=== PATIENT | female | born 1970 | race American Indian/Alaskan Native ===

== ENCOUNTER 2016-10-16 08:02 | Inpatient (IN) | payer OTHER ==
[2016-10-16 08:48] LABS: Hematocrit 24.8 % (30.3-42.9); Hemoglobin 7.6 gm/dl (10.1-14.3); Mean Corpuscular HGB Conc 31 % (30-34); Red Cell Distribution Width 17.9 % (13.2-15.2); White Blood Count 6.4 K/mm3 (4.5-11.0)
[2016-10-16 08:49] LABS: Basophils % (Auto) 0.7 % (0.0-1.8); Eosinophils % (Auto) 7.9 % (0.0-4.3); Platelet Count 221 K/mm3 (140-440)
[2016-10-16 08:52] LABS: Mean Corpuscular Hemoglobin 21 pg (28-32); Mean Corpuscular Volume 67 fl (79-97)
[2016-10-16 09:07] LABS: Anion Gap 15 mmol/L; Blood Urea Nitrogen 4 mg/dL (7-17); Calcium 8.6 mg/dL (8.4-10.2); Carbon Dioxide 24 mmol/L (22-30); Chloride 101.3 mmol/L (98-107); Glucose 95 mg/dL (65-100); Potassium 3.7 mmol/L (3.6-5.0); Sodium 137 mmol/L (137-145)
[2016-10-16 10:04] LABS: Bilirubin,Urine NEG (Negative); Blood,Urine SM (Negative); Ketones,Urine NEG (Negative); Leukocyte Esterase,Urine NEG (Negative); Nitrite,Urine NEG (Negative); Protein,Urine <15 mg/dL mg/dL (Negative); Urobilinogen,Urine < 2.0 mg/dL (<2.0)
[2016-10-16 10:05] LABS: RBC,Urine < 1.0 /HPF (0.0-6.0); WBC,Urine < 1.0 /HPF (0.0-6.0)
[2016-10-16] MEDS ORDERED: MORPHINE IV ONE (11:19)
[2016-10-16] MEDS ORDERED: ZOFRAN IV ONE (11:19)
[2016-10-16] MEDS ORDERED: NACL 0.9% 500 ML 500 ML IV ONE ×2 (11:20→15:00)
--- NOTE | 2016-10-16 11:26 | Emergency Department Report ---
ED General Adult HPI - General Chief complaint: Chest Pain Stated complaint: HEAVY VAG BLEEDING /HEADACHE/DIZZINESS Time Seen by Provider: 10/16/16 11:08 Source: patient, old records reviewed (no previous record for review) Mode of arrival: Ambulatory Limitations: No Limitations - History of Present Illness Initial comments: 46 yo female with a past medical history of peptic ulcer disease, migraine headache, anemia, fibroids, and previous tubal ligation presents hospital with multiple complaints. Patient had been a prolonged menstrual cycle 10 days with heavy bleeding. Patient states using 3 pads per day. She's had intermittent lightheadedness, dyspnea on exertion, and generalized fatigue. Patient also had left upper sharp chest pain 2 days ago that has since resolved. No complaints of calf tenderness or edema. Patient also suffers from migraines and states for the last 5 days she has had more persistent right- sided headaches. Location and character is typical of previous migraines but this one is more prolonged. Patient takes ibuprofen with temporary relief then headache comes back. No reports of nausea, vomiting, focal weakness or numbness. Patient has a known history of iron deficiency anemia and has been noncompliant with iron tablets. She just bought some iron tablets yesterday and restarted them at that time. She has had history of blood transfusion in the past. She has history of laser surgery treatment of her previous fibroid tumors approximately 3-4 years ago. She does not currently have a OFFICE MOVER or primary care doctor. - Related Data Allergies Allergy/AdvReac Type Severity Reaction Status Date / Time No Known Allergies Allergy Unverified 10/16/16 08:09 ED Review of Systems ROS: Stated complaint: HEAVY VAG BLEEDING /HEADACHE/DIZZINESS Other details as noted in HPI Comment: All other systems reviewed and negative Other: Constitutional: No fevers chills Eyes: No eye pain visual changes ENT: No ear pain or throat pain Neck: Denies pain Respiratory: Denies cough wheezing Cardiovascular: Denies palpitations, syncope GI: Denies abdominal pain, nausea, vomiting, diarrhea : Denies dysuria Musculoskeletal: Denies back pain Skin: Denies rash, lesions, erythema Neurologic: Denies numbness Psychiatric: Denies suicidal ideation, hallucinations ED Past Medical Hx - Past Medical History Additional medical history: Ulcer, anemia, Fibroids - Surgical History Additional Surgical History: Fibroids, tubal ligation - Social History Smoking Status: Current Every Day Smoker Substance Use Type: None ED Physical Exam - General Limitations: No Limitations - Other Other exam information: General: No limitations, patient is alert in no acute distress Head exam: Atraumatic, normocephalic Eyes exam: Normal appearance ENT: Moist mucous membrane, normal oropharynx Neck exam: Normal inspection, full range of motion, no meningismus nontender Respiratory exam: Clear to auscultation bilateral, no wheezes, rales, crackles Cardiovascular: Normal rate and rhythm, normal heart sounds. Chest wall nontender Abdomen: Soft, nondistended, and nontender, with normal bowel sounds, no rebound, or guarding Extremity: Full range of motion normal inspection no deformity, no calf tenderness or edema Back: Normal Inspection, full range of motion, no tenderness Neurologic: Alert, oriented x3, cranial nerves intact, no motor or sensory deficit Psychiatric: normal affect, normal mood Skin: Warm, dry, intact ED Course Vital Signs 10/16/16 08:09 Temperature 97.6 F Pulse Rate 90 Respiratory 18 Rate Blood Pressure 129/87 O2 Sat by Pulse 100 Oximetry - Reevaluation(s) Reevaluation #1: 10/16/16 11:26 Morphine and Zofran ordered for pain ED Medical Decision Making - Lab Data Result diagrams: 10/16/16 08:18 10/16/16 08:18 Lab Results 10/16/16 10/16/16 10/16/16 Range/Units 08:18 08:18 09:29 WBC 6.4 (4.5-11.0) K/mm3 RBC 3.70 (3.65-5.03) M/mm3 Hgb 7.6 L (10.1-14.3) gm/dl Hct 24.8 L (30.3-42.9) % MCV 67 L (79-97) fl MCH 21 L (28-32) pg MCHC 31 (30-34) % RDW 17.9 H (13.2-15.2) % Plt Count 221 (140-440) K/mm3 Lymph % (Auto) 21.1 (13.4-35.0) % Lynn % (Auto) 7.0 (0.0-7.3) % Eos % (Auto) 7.9 H (0.0-4.3) % Baso % (Auto) 0.7 (0.0-1.8) % Lymph # 1.4 (1.2-5.4) K/mm3 Lynn # 0.4 (0.0-0.8) K/mm3 Eos # 0.5 H (0.0-0.4) K/mm3 Baso # 0.0 (0.0-0.1) K/mm3 Seg Neutrophils % 63.3 (40.0-70.0) % Seg Neutrophils # 4.1 (1.8-7.7) K/mm3 Sodium 137 (137-145) mmol/L Potassium 3.7 (3.6-5.0) mmol/L Chloride 101.3 (98-107) mmol/L Carbon Dioxide 24 (22-30) mmol/L Anion Gap 15 mmol/L BUN 4 L (7-17) mg/dL Creatinine 0.5 L (0.7-1.2) mg/dL Estimated GFR > 60 ml/min BUN/Creatinine Ratio 8.00 % Glucose 95 (65-100) mg/dL Calcium 8.6 (8.4-10.2) mg/dL Troponin T < 0.010 (0.00-0.029) ng/mL Urine Color Colorless (Yellow) Urine Turbidity Clear (Clear) Urine pH 7.0 (5.0-7.0) Ur Specific [place] 1.002 L (1.003-1.030) Urine Protein <15 mg/dl (Negative) mg/dL Urine Glucose (UA) Neg (Negative) mg/dL Urine Ketones Neg (Negative) mg/dL Urine Blood Sm (Negative) Urine Nitrite Neg (Negative) Urine Bilirubin Neg (Negative) Urine Urobilinogen < 2.0 (<2.0) mg/dL Ur Leukocyte Esterase Neg (Negative) Urine WBC (Auto) < 1.0 (0.0-6.0) /HPF Urine RBC (Auto) < 1.0 (0.0-6.0) /HPF U Epithel Cells (Auto) < 1.0 (0-13.0) /HPF Urine HCG, Qual (Negative) 10/16/16 Range/Units Unknown WBC (4.5-11.0) K/mm3 RBC (3.65-5.03) M/mm3 Hgb (10.1-14.3) gm/dl Hct (30.3-42.9) % MCV (79-97) fl MCH (28-32) pg MCHC (30-34) % RDW (13.2-15.2) % Plt Count (140-440) K/mm3 Lymph % (Auto) (13.4-35.0) % Lynn % (Auto) (0.0-7.3) % Eos % (Auto) (0.0-4.3) % Baso % (Auto) (0.0-1.8) % Lymph # (1.2-5.4) K/mm3 Lynn # (0.0-0.8) K/mm3 Eos # (0.0-0.4) K/mm3 Baso # (0.0-0.1) K/mm3 Seg Neutrophils % (40.0-70.0) % Seg Neutrophils # (1.8-7.7) K/mm3 Sodium (137-145) mmol/L Potassium (3.6-5.0) mmol/L Chloride (98-107) mmol/L Carbon Dioxide (22-30) mmol/L Anion Gap mmol/L BUN (7-17) mg/dL Creatinine (0.7-1.2) mg/dL Estimated GFR ml/min BUN/Creatinine Ratio % Glucose (65-100) mg/dL Calcium (8.4-10.2) mg/dL Troponin T (0.00-0.029) ng/mL Urine Color (Yellow) Urine Turbidity (Clear) Urine pH (5.0-7.0) Ur Specific [place] (1.003-1.030) Urine Protein (Negative) mg/dL Urine Glucose (UA) (Negative) mg/dL Urine Ketones (Negative) mg/dL Urine Blood (Negative) Urine Nitrite (Negative) Urine Bilirubin (Negative) Urine Urobilinogen (<2.0) mg/dL Ur Leukocyte Esterase (Negative) Urine WBC (Auto) (0.0-6.0) /HPF Urine RBC (Auto) (0.0-6.0) /HPF U Epithel Cells (Auto) (0-13.0) /HPF Urine HCG, Qual Negative (Negative) - EKG Data -: EKG Interpreted by Me (sinus rhythm rate 77, no ST elevation OR) - EKG Data When compared to previous EKG there are: previous EKG unavailable - Medical Decision Making Patient has a variety of symptoms worse may be due to symptomatic anemia. Since patient is symptomatic and has active bleeding will admit to the hospital for blood transfusion. No chest pain currently. Initial cardiac enzymes EKG unremarkable. Pelvic ultrasound (to evaluate for recurrent fibroids), iron studies, and type and screen pending at disposition. One unit of PRBCs ordred - Differential Diagnosis menorrhagia, iron deficiency anemia, migraine, atypical chest pain, unstabl Critical Care Time: No Critical care attestation.: If time is entered above; I have spent that time in minutes in the direct care of this critically ill patient, excluding procedure time. ED Disposition Clinical Impression: Menometrorrhagia, Symptomatic anemia, Migraine headache, History of uterine fibroid, Iron deficiency anemia Disposition: OP ADMITTED IP TO THIS HOSP Is pt being admited?: Yes Condition: Stable Time of Disposition: 11:34 (Dr Lawson/hosp)
--- NOTE | 2016-10-16 11:48 | Admit Criteria Form ---
Admission Criteria Documentation: ANEMIA, IRON DEFICIENCY OR UNSPECIFIED Clinical Indications for Inpatient Care (Place 'X' for any and all applicable criteria): Admission is indicated for ANY ONE of the following(1)(2)(3)(4)(5)(6)(7): [X] I. Inpatient admission required rather than observation care (Also use Anemia, Iron Deficiency or Unspecified: Observation Care guideline as appropriate) because of ANY ONE of the following: [] a) Hemodynamic instability that is severe or persistent [] b) Active bleeding that cannot be rapidly controlled [] c) CVS symptoms (i.e., dyspnea, chest pain, heart failure) that are severe or persistent [] d) Neurologic symptoms (i.e., cognitive impairment, recurrent syncope or near syncope) that are severe or persistent [] e) Cardiac arrhythmias of immediate concern [] f) Acute peripheral ischemia (e.g., pulseless, cool, mottled, or cyanotic extremity) [] g) High-risk low platelet count [] h) Acute renal failure [] i) Ongoing transfusion for blood loss (greater than 2 units) [] j) IV fluid to replace significant ongoing (eg, >24 hours) losses (> 3 L/m2 per day) [] k) Pulmonary artery catheter monitoring [] l) Supplemental oxygen or respiratory treatments for over 24 hours that are performable only in acute inpatient setting [] m) Immediate inpatient surgery [X] n) Other condition, treatment or monitoring requiring inpatient admission [] II Active massive hemorrhage [] III. Active hemolysis with rapidly progressive anemia [A](6) Extended stay beyond goal length of stay may be needed for (17)(18) []a) Diagnosed cause of anemia requiring longer hospitalization (eg, active GI bleeding, immune hemolysis requiring electrophoresis, complications of malignancy requiring acute care []b) Continued emergent anemia indicators (23) []c) Transfusion reactions []d) Associated leukopenia or thrombocytopenia needing inpatient care []e) Active comorbidities (eg, renal failure, heart failure) The original [facility] Care Guidelines content created by [facility] Care Guidelines has been revised. The portions of the content which have been revised are identified through the use of italic text or in bold. [facility] Guidelines has neither reviewed nor approved the modified material. All other unmodified content is copyright [facility] Care Guidelines. Please see references footnoted in the original [facility] edition 2016 Admission Criteria Met: Yes
[2016-10-16 11:56] LABS: INR 1.14 (0.87-1.13)
[2016-10-16 11:57] LABS: Partial Thromboplastin Time 30.9 Sec. (24.2-36.6)
[2016-10-16] MEDS ORDERED: ZOFRAN ONE (12:35)
[2016-10-16] MEDS ORDERED: MORPHINE ONE ×2 (12:35)
[2016-10-16 12:51] LABS: Total Iron Binding Capacity 382.2 mcg/dL (250-450)
--- NOTE | 2016-10-16 12:58 | Ultrasound Report ---
Pelvic ultrasound: Menorrhagia; history of fibroids. Endovaginal and transabdominal imaging demonstrates an anteverted uterus measuring 4.5 x 6.7 x 9.7 cm. The myometrium is homogeneous. The endometrium is homogeneous with a thickness of 24 mm. The left ovary measures 6.4 cm and contains a 5.4 cm cyst. There is a normal flow pattern Doppler imaging. The right ovary measures 2.5 cm. It is not well-visualized but is grossly unremarkable. There is no free fluid. Impressions: 1. Nonspecific endometrial thickening. 2. Left ovarian cyst.
[2016-10-16] MEDS ORDERED: NACL 0.9% 500 ML 500 ML IV SCH (15:00)
--- NOTE | 2016-10-16 15:56 | Event Note ---
Date: 10/16/16 See H/p in reports Acute Blood loss Anemia Menorrhagia
[2016-10-16] MEDS ORDERED: TYLENOL PO PRN (15:58)
[2016-10-16] MEDS ORDERED: MILK OF MAGNESIA PO PRN (15:58)
[2016-10-16] MEDS ORDERED: DULCOLAX PR PRN (15:58)
[2016-10-16] MEDS ORDERED: ZOFRAN IV PRN (15:58)
[2016-10-16] MEDS ORDERED: D5NS 1,000 ML IV SCH (16:00)
[2016-10-16] MEDS: PERCOCET 5/325 PO PRN ×2 (17:27→22:59)
[2016-10-17 04:49] LABS: Basophils % (Auto) 0.7 % (0.0-1.8); Eosinophils % (Auto) 5.4 % (0.0-4.3); Hematocrit 23.9 % (30.3-42.9); Hemoglobin 7.2 gm/dl (10.1-14.3); Mean Corpuscular HGB Conc 30 % (30-34); Platelet Count 179 K/mm3 (140-440); Red Blood Count 3.44 M/mm3 (3.65-5.03)
[2016-10-17 04:50] LABS: Mean Corpuscular Hemoglobin 21 pg (28-32); Mean Corpuscular Volume 70 fl (79-97)
[2016-10-17 04:54] LABS: Alanine Aminotransferase 15 units/L (7-56); Albumin 3.2 g/dL (3.9-5); Albumin/Globulin Ratio 1.2 %; Alkaline Phosphatase 63 units/L (35-129); Anion Gap 14 mmol/L; Blood Urea Nitrogen 5 mg/dL (7-17); Calcium 8.1 mg/dL (8.4-10.2); Carbon Dioxide 25 mmol/L (22-30); Chloride 102.5 mmol/L (98-107); Glucose 95 mg/dL (65-100); Potassium 4.2 mmol/L (3.6-5.0); Sodium 137 mmol/L (137-145); Total Protein 5.9 g/dL (6.3-8.2)
[2016-10-17] MEDS ORDERED: NACL 0.9% 500 ML 500 ML IV ONE (08:26)
--- NOTE | 2016-10-17 08:38 | History and Physical Report ---
CHIEF COMPLAINT: 1. Dizziness and weakness. 2. Heavy vaginal bleeding. HISTORY OF PRESENT ILLNESS: A 46-year-old -[place]ian female with a past medical history of migraine headaches, peptic ulcer disease, fibroids, anemia, comes in for a prolonged menstrual cycle of 10 days. Using 3 pads per day. Usually a cycle lasts for about 5 days. The patient had anemia in the past because of the vaginal bleeding. Also suffers from migraine. The patient has a known history of iron deficiency anemia and has been noncompliant with iron tablets. Had blood transfusions in the past because of the anemia and fibroids. PAST MEDICAL HISTORY: Significant for peptic ulcer disease, fibroids and recurrent anemia secondary to menorrhagia. PAST SURGICAL HISTORY: Fibroid surgery and tubal ligation. SOCIAL HISTORY: Smokes about a pack a day. FAMILY HISTORY: Noncontributory. REVIEW OF SYSTEMS: Significant for feeling weak and tired. An excessive menstrual bleeding. Otherwise, 14-point review of systems is negative. No chest pain. No abdominal pain. No dysuria, no flank pain. PHYSICAL EXAMINATION: GENERAL: Middle-aged female, cooperative during examination. VITAL SIGNS: Temperature 97.6, pulse is 90, respiratory rate is 18, blood pressure is 129/87. HEENT: Unremarkable. Pupils equal and reactive. NECK: Supple, no lymphadenopathy, no thyromegaly. LUNGS: Clear to auscultation and percussion. Good air entry. CARDIOVASCULAR: S1, S2 heard. No gallop, no murmur, no rub. Apical impulse in left fifth intercostal space and midclavicular line. ABDOMEN: Soft and benign. No hepatosplenomegaly. No guarding, no rigidity. Hernial orifices are normal. EXTREMITIES: Good pedal pulses. No pedal edema. CENTRAL NERVOUS SYSTEM: Alert and oriented x 4. Nonfocal exam. SKIN: Normal. LABORATORY DATA: Significant for hemoglobin of 7.6, hematocrit of 24.8, INR of 1.14. Iron is low 11, transferrin is 273, percentage saturation is 2.8, sodium is 137, potassium is 3.7. ASSESSMENT AND PLAN: 1. Acute blood loss anemia. The patient needs to be transfused 2 units of blood. Also, Obstetrics-Gynecology consult requested by Dr. Collins. 2. Menorrhagia and Obstetrics-Gynecology consult for controlling the menorrhagia and a possible hysterectomy at a later date. 3. Iron deficiency anemia, iron tablets started. The patient to take iron on a regular basis. Deep venous thrombosis prophylaxis, only SCDs. No naproxen for the time being. JOB# [id number] MARYCARMEN/NTS
[2016-10-17] MEDS ORDERED: PROTONIX PO SCH (10:00)
[2016-10-17] MEDS ORDERED: FERGON PO SCH (10:00)
[2016-10-17] MEDS: PERCOCET 5/325 PO PRN (11:09)
--- NOTE | 2016-10-17 11:57 | Consultation ---
History of Present Illness Consult date: 10/17/16 Requesting physician: MANISH SANTOS Reason for consult: menorrhagia History of present illness: This is a 46-year-old black female who presents to the emergency department secondary to worsening headaches fatigue and vaginal bleeding for the last 10 days. The patient reports having a history of regular menses it generally lasts 7 days however is heavy for the first 3-4 days. Her past medical history significant for a prior gastritis with what she describes as a bleeding ulcer. The patient states that she has been experiencing severe headache for the last week and also presented to the emergency room with intermittent chest pain. An ultrasound was performed in the emergency department with findings of a homogeneous uterus and a mildly thickened endometrial stripe of 24 mm. She has also had findings of a 5.4 cm ovarian cyst. Today the patient reports improvement in her vaginal bleeding but complains that she continues to have a headache. Past History Past Medical History: other (functional uterine bleeding) Past Surgical History: other (tubal ligation) Medications and Allergies Allergies Allergy/AdvReac Type Severity Reaction Status Date / Time No Known Allergies Allergy Unverified 10/16/16 08:09 Home Medications Medication Instructions Recorded Confirmed Last Taken Type Aspirin/Acetaminophen/Caffeine 1 pack PO PRN PRN 10/16/16 10/16/16 10/16/16 History [Goody's Ex-Str Powder Packet] Ibuprofen [Motrin 200 MG tab] 2 tab PO PRN PRN 10/16/16 10/16/16 10/16/16 History Mv, Min #36/Iron,Carbonyl/FA 1 tab PO QDAY 10/16/16 10/16/16 10/15/16 History [Geritol Complete Tablet] Naproxen [Naproxen TAB] 1 tab PO PRN PRN 10/16/16 10/16/16 10/15/16 History Active Meds: Active Medications Acetaminophen (Tylenol) 650 mg PO Q4H PRN PRN Reason: Pain MILD(1-3)/Fever >100.5/ROBLEDO Bisacodyl (Dulcolax) 10 mg UT QDAY PRN PRN Reason: Constipation unrelieved by MOM Ferrous Gluconate (Fergon) 324 mg PO QDAY GORGE Dextrose/Sodium Chloride (D5ns) 1,000 mls @ 75 mls/hr IV DIRECT GORGE Last Admin: 10/16/16 21:58 Dose: 75 mls/hr Magnesium Hydroxide (Milk Of Magnesia) 30 ml PO Q4H PRN PRN Reason: Constipation Ondansetron HCl (Zofran) 4 mg IV Q8H PRN PRN Reason: N/V unrelieved by Reglan Oxycodone/Acetaminophen (Percocet 5/325) 1 tab PO Q6H PRN PRN Reason: Pain, Moderate (4-6) Last Admin: 10/17/16 11:09 Dose: 1 tab Pantoprazole Sodium (Protonix) 20 mg PO QDAY [facility] Review of Systems All systems: negative Constitutional: fatigue Eyes: other (headache) Genitourinary: vaginal bleeding - Vital Signs Vital signs: Vital Signs Temp Pulse Resp BP Pulse Ox 97.6 F 90 18 129/87 100 10/16/16 08:09 10/16/16 08:09 10/16/16 08:09 10/16/16 08:09 10/16/16 08:09 Temp Pulse Resp BP Pulse Ox 97.3 F L 69 20 119/55 100 10/17/16 07:00 10/17/16 07:00 10/17/16 07:00 10/17/16 07:00 10/17/16 07:00 Results Result Diagrams: 10/17/16 03:45 10/17/16 03:45 Abnormal lab results 10/17/16 10/17/16 Range/Units 03:45 03:45 RBC 3.44 L (3.65-5.03) M/mm3 Hgb 7.2 L (10.1-14.3) gm/dl Hct 23.9 L (30.3-42.9) % MCV 70 L D (79-97) fl MCH 21 L (28-32) pg RDW 19.0 H (13.2-15.2) % [place] % (Auto) 7.6 H (0.0-7.3) % Eos % (Auto) 5.4 H (0.0-4.3) % BUN 5 L (7-17) mg/dL Creatinine 0.4 L (0.7-1.2) mg/dL Calcium 8.1 L (8.4-10.2) mg/dL Total Protein 5.9 L (6.3-8.2) g/dL Albumin 3.2 L (3.9-5) g/dL All other labs normal. Assessment and Plan - Patient Problems (1) Iron deficiency anemia Current Visit: Yes Status: Acute Qualifiers: Iron deficiency anemia type: I (2) Menometrorrhagia Current Visit: Yes Status: Acute Plan to address problem: Treatment options for management of the patient's menorrhagia were discussed. Patient is not a candidate for estrogen therapy secondary to her smoking history. After review of her ultrasound the patient is an ideal candidate for a endometrial ablation via [employer]Sure. This procedure can be scheduled as an outpatient basis. The patient will require an endometrial biopsy on an outpatient basis prior to performing the endometrial ablation. The patient strongly desires to be transferred to another facility. The patient was instructed to follow-up with Dr. Waters as an outpatient (3) Migraine headache Current Visit: Yes Status: Acute Qualifiers: Migraine type: M Status migrainosus presence: S Intractability: I (4) Symptomatic anemia Current Visit: Yes Status: Acute
--- NOTE | 2016-10-17 13:11 | Discharge Summary ---
Providers - Providers Date of Admission: 10/16/16 11:35 Date of discharge: 10/17/16 Attending physician: AKIL SINGLETARY 10/16/16 15:58 Consult to Physician [CONS] Routine Consulting Provider: DAKOTA BRICENO Reason For Exam: Menorrhagia Place consult to:: DR. BRICENO Notified:: ANSWERING SERVICE Phone number called:: [phone] Was contact made?: Yes Time called:: 16:11 Comment:: CONSULT COMPLETED - FARHANA Primary care physician: MANAGER GARAGE Hospitalization Reason for admission: fatigue, dizziness Condition: Stable Pertinent studies: Transvaginal ultrasound Hospital course: Patient is a 46-year-old black female who presents to the emergency department secondary to worsening headaches, fatigue and vaginal bleeding for the last 10 days. She reports having a history of regular menses that generally lasts 7 days, however is heavy for the first 3-4 days. An ultrasound was performed in the emergency department with findings of a homogeneous uterus and a mildly thickened endometrial stripe of 24 mm. She has also had findings of a 5.4 cm ovarian cyst. She was evaluated by [facility] and is scheduled for outpatient biopsy and possible ablation. She will receive 2 units PRBC transfusion as she continues to bleed and will be discharged on iron supplementation. Discharge diagnoses: 1. Menorrhagia 2. Symptomatic anemia due to acute on chronic blood loss 3. Iron deficiency 4. Migraine headache Disposition: DISCHARGED TO HOME OR SELFCARE Time spent for discharge: 35 minutes Core Measure Documentation - Palliative Care Palliative Care/ Comfort Measures: Not Applicable - Core Measures Any of the following diagnoses?: none Exam - Physical Exam Narrative exam: Patient seen and examined: - Constitutional Vitals: Temp Pulse Resp BP Pulse Ox 97.3 F L 69 20 119/55 100 10/17/16 07:00 10/17/16 07:00 10/17/16 07:00 10/17/16 07:00 10/17/16 07:00 General appearance: Present: no acute distress, obese - EENT Eyes: Present: PERRL, EOM intact. Absent: scleral icterus, conjunctival injection - Neck Neck: Present: supple, normal ROM. Absent: masses or JVD - Respiratory Respiratory effort: normal Respiratory: bilateral: CTA, negative: rhonchi, wheezing - Cardiovascular Rhythm: regular Heart Sounds: Present: S1 & S2. Absent: systolic murmur - Extremities Extremities: no ischemia - Abdominal General gastrointestinal: Present: soft, non-tender, non-distended, normal bowel sounds - Neurologic Neurologic: CNII-XII intact, no focal deficits Plan Activity: advance as tolerated, fall precautions Diet: low cholesterol, low salt Follow up with: PRIMARY CARE, [Primary Care Provider] - 7 Days CARLOS MANUEL MENA MD [Staff Physician] - 7 Days Pending Studies PRBC transfusion
[2016-10-17] MEDS ORDERED: NACL 0.9% 500 ML 500 ML ONE (14:44)
[2016-10-17] MEDS: FIORICET PO PRN (16:00)
[2016-10-18] MEDS: FIORICET PO PRN (07:09)
[2016-10-18 07:50] VITALS: BP 90/54
== END 2016-10-18 09:00 | disposition home or self-care (01) | DRG 760 ==
LOC: ED 08:02 → 3A 11:35
PROVIDERS: ADMIT Internal Medicine; ATTEND Internal Medicine
PROC: 30233N1 Transfusion of Nonautologous Red Blood Cells into Peripheral Vein, Percutaneous Approach (ICD-10-PCS; principal; 2016-10-16)
DX: N92.1 Excessive and frequent menstruation with irregular cycle (principal); D62 Acute posthemorrhagic anemia; G43.909 Migraine, unspecified, not intractable, without status migrainosus; D50.9 Iron deficiency anemia, unspecified; F17.200 Nicotine dependence, unspecified, uncomplicated; Z79.82 Long term (current) use of aspirin; Z79.899 Other long term (current) drug therapy; Z86.018 Personal history of other benign neoplasm; Z98.51 Tubal ligation status
CPT/HCPCS: 36415; 76830; 76856; 80048; 80053; 81001; 81025; 83550; 84484; 85025; 85610; 85730; 86850; 86900; 86901; 86920; 93005; 93010; 96374; 96375; J2270; J2405; J7040; J7042; P9016